=== PATIENT | male | born 1940 | race Caucasian/White ===

== ENCOUNTER 2020-11-16 12:59 | Outpatient (CLI) | payer MEDICARE, BC | END 2020-11-16 23:59 | disposition home or self-care (01) | LOC: RAD 12:59 | PROVIDERS: ATTEND Internal Medicine Cardiovascular Disease | DX: Z01.810 Encounter for preprocedural cardiovascular examination (principal); I35.0 Nonrheumatic aortic (valve) stenosis; I65.29 Occlusion and stenosis of unspecified carotid artery; N20.0 Calculus of kidney; N21.0 Calculus in bladder; N32.89 Other specified disorders of bladder; I25.10 Atherosclerotic heart disease of native coronary artery without angina pectoris; I77.810 Thoracic aortic ectasia | CPT/HCPCS: 71250; 74176 ==

== ENCOUNTER 2020-11-23 07:21 | Inpatient (IN) | payer MEDICARE, BC ==
[~2020-11-23] VITALS: Ht 182.9 cm; Wt 67.3 kg
[2020-11-23] MEDS ORDERED: TRAM50TA2 PO (07:59)
[2020-11-23] MEDS ORDERED: ROSU20TA2 PO (07:59)
[2020-11-23] MEDS ORDERED: ALBU90AE INH (07:59)
[2020-11-23] MEDS ORDERED: ASPI81TA45 PO (07:59)
[2020-11-23] MEDS ORDERED: FLUT9.9S INH (07:59)
[2020-11-23] MEDS ORDERED: LOSA25TA25 PO (07:59)
[2020-11-23] MEDS ORDERED: ACET-76 PO (07:59)
[2020-11-23] MEDS ORDERED: SODIUM CHLORIDE 0.9% 1,000 ML IV ONE (08:00)
[2020-11-23] MEDS ORDERED: ONDANSETRON 2MG/ML, 2ML IV PRN (08:00)
[2020-11-23 08:01] VITALS: BP 152/70
[2020-11-23 08:29] LABS: BASOPHILS % (AUTO) 1 % (0-1); EOSINOPHILS % (AUTO) 1 % (1-7); LYMPHOCYTES % (AUTO) 22 % (22-44); MEAN CORPUSCULAR HEMOGLOBIN 33.2 pg (27.5-34.5); MEAN CORPUSCULAR HGB CONC 34.1 g/dL (33.2-36.2); MEAN PLATELET VOLUME 7.5 fL (7.4-10.4); MONOCYTES % (AUTO) 10 % (2-9); NEUTROPHILS % (AUTO) 66 % (42-75); PLATELET COUNT 182 x10^3/uL (130-400); RED BLOOD COUNT 4.31 x10^6/uL (4.38-5.82); RED CELL DISTRIBUTION WIDTH 12.7 % (9.4-14.8)
[2020-11-23 08:37] LABS: ALANINE AMINOTRANSFERASE 46 U/L (12-78); ALBUMIN 3.8 g/dL (3.4-5.0); ANION GAP 7 mmol/L (5-15); CALCIUM 8.9 mg/dL (8.5-10.1); CHLORIDE 112 mmol/L (98-107); CREATININE 1.59 mg/dL (0.7-1.3); INTERNATIONAL NORMALIZED RATIO 0.93 (0.93-1.1)
[2020-11-23 08:39] LABS: ALKALINE PHOSPHATASE 67 U/L (45-117); BILIRUBIN,TOTAL 0.5 mg/dL (0.2-1.0); TOTAL PROTEIN 7.3 g/dL (6.4-8.2)
[2020-11-23] MEDS ORDERED: PROTAMINE SULFATE 10 MG/ML, 5ML ONE (08:41)
[2020-11-23] MEDS ORDERED: FENTANYL PF 250 MCG/5ML ONE (08:43)
[2020-11-23] MEDS ORDERED: DEXAMETHASONE 4 MG/ML, 1ML ONE ×2 (08:44)
[2020-11-23] MEDS ORDERED: PROPOFOL 10 MG/ML, 20ML ONE (08:44)
[2020-11-23] MEDS ORDERED: CEFAZOLIN 1,000 MG ONE ×2 (08:44)
[2020-11-23] MEDS ORDERED: ROCURONIUM 10MG/ML,5ML ONE (08:44)
[2020-11-23] MEDS ORDERED: HEPARIN 1,000 UNITS/ML, 10ML ONE ×3 (08:47→09:28)
[2020-11-23] MEDS ORDERED: PHENYLEPHRINE 10 MG/ML ONE (08:55)
[2020-11-23] MEDS ORDERED: ONDANSETRON 2MG/ML, 2ML ONE (08:55)
[2020-11-23] MEDS ORDERED: SUCCINYLCHOLINE 20 MG/ML, 10ML ONE (08:55)
[2020-11-23] MEDS ORDERED: LABETALOL 20 MG/4 ML IVPush PRN (10:00)
[2020-11-23] MEDS ORDERED: HYDROcodone/APAP 5/325 TABLET PO PRN (10:00)
[2020-11-23] MEDS: ASPIRIN 81 MG TABLET EC PO SCH (10:00)
[2020-11-23] MEDS ORDERED: hydrALAzine 20 MG/ML, 1ML IVPush PRN (10:00)
[2020-11-23 11:10] VITALS: BP 129/81
[2020-11-23] MEDS: ACETAMINOPHEN 325 MG TABLET PO PRN ×2 (11:52→22:42)
[2020-11-23 13:21] VITALS: BP 134/81
[2020-11-23 13:22] VITALS: BP 135/65
[2020-11-23] MEDS ORDERED: ALBUTEROL SULFATE 2.5 MG/3 ML NPPB PRN (13:30)
[2020-11-23 18:59] VITALS: BP 100/59
[2020-11-23] MEDS ORDERED: ATORVASTATIN 80 MG TABLET PO SCH (21:00)
[2020-11-23] MEDS: FLUTICASONE NASAL SPRAY 16GM NAS PRN (22:38)
[2020-11-24 01:34] VITALS: BP 110/63
[2020-11-24 06:00] LABS: BASOPHILS % (AUTO) 0 % (0-1); EOSINOPHILS % (AUTO) 0 % (1-7); LYMPHOCYTES % (AUTO) 16 % (22-44); MEAN CORPUSCULAR HEMOGLOBIN 33.2 pg (27.5-34.5); MEAN CORPUSCULAR HGB CONC 34.1 g/dL (33.2-36.2); MEAN PLATELET VOLUME 7.7 fL (7.4-10.4); MONOCYTES % (AUTO) 9 % (2-9); NEUTROPHILS % (AUTO) 74 % (42-75); PLATELET COUNT 138 x10^3/uL (130-400); RED BLOOD COUNT 3.94 x10^6/uL (4.38-5.82); RED CELL DISTRIBUTION WIDTH 12.6 % (9.4-14.8)
[2020-11-24 06:05] LABS: ANION GAP 5 mmol/L (5-15); CALCIUM 8.9 mg/dL (8.5-10.1); CHLORIDE 111 mmol/L (98-107)
[2020-11-24 06:07] LABS: CREATININE 1.51 mg/dL (0.7-1.3)
[2020-11-24 07:41] VITALS: BP 125/70
[2020-11-24] MEDS: ASPIRIN 81 MG TABLET EC PO SCH (07:54)
[2020-11-24] MEDS: FLUTICASONE NASAL SPRAY 16GM NAS PRN (07:54)
[2020-11-24] MEDS ORDERED: LOSARTAN 25MG TABLET PO SCH (09:00)
[2020-11-24] MEDS: PHENOL THROAT SPRAY BOTTLE MM PRN ×2 (10:26→14:13)
[2020-11-24 12:35] VITALS: BP 122/67
== END 2020-11-24 16:00 | disposition home or self-care (01) | DRG 266 ==
LOC: ORIP 07:21 → 5SO 11:03 → DCLOUNGE 11-24 15:42
PROVIDERS: ADMIT Internal Medicine Cardiovascular Disease; ATTEND Internal Medicine Cardiovascular Disease
PROC: B24BZZ4 Ultrasonography of Heart with Aorta, Transesophageal (ICD-10-PCS; 2020-11-23)
PROC: B3101ZZ Fluoroscopy of Thoracic Aorta using Low Osmolar Contrast (ICD-10-PCS; 2020-11-23)
PROC: 02RF38Z Replacement of Aortic Valve with Zooplastic Tissue, Percutaneous Approach (ICD-10-PCS; principal; 2020-11-23 09:00)
DX: I35.0 Nonrheumatic aortic (valve) stenosis (principal); Z00.6 Encounter for examination for normal comparison and control in clinical research program; I50.33 Acute on chronic diastolic (congestive) heart failure; I13.0 Hypertensive heart and chronic kidney disease with heart failure and stage 1 through stage 4 chronic kidney disease, or unspecified chronic kidney disease; Z20.822 Contact with and (suspected) exposure to COVID-19; E78.5 Hyperlipidemia, unspecified; I65.23 Occlusion and stenosis of bilateral carotid arteries; K59.00 Constipation, unspecified; N18.9 Chronic kidney disease, unspecified; Z82.49 Family history of ischemic heart disease and other diseases of the circulatory system; Z86.718 Personal history of other venous thrombosis and embolism; Z86.73 Personal history of transient ischemic attack (TIA), and cerebral infarction without residual deficits; Z87.891 Personal history of nicotine dependence; Z91.81 History of falling; Z98.1 Arthrodesis status
CPT/HCPCS: 33361; 36415; 76937; 80048; 80053; 85025; 85610; 86850; 86900; 86923; 87635; 93005; 93306; 93312; 93321; 93325; 93355; C1760; C1769; C1894; G0378; J0690; J1100; J1644; J2405; J2704; J2720; J3010; J0330; J2370; Q9967

== ENCOUNTER 2020-12-07 13:34 | Inpatient (IN) | payer MEDICARE, BC ==
[~2020-12-07] VITALS: Ht 172.7 cm; Wt 64.2 kg
[~2020-12-07 13:34] MED LIST: ACET-76 PO; ALBU90AE INH; ASPI81TA45 PO; FLUT9.9S INH; LOSA25TA25 PO; ROSU20TA2 PO; TRAM50TA2 PO
--- NOTE | 2020-12-07 13:41 | NUR ---
THIS IS 79/M BIB CARE FLIGHT FROM [facility] FOR CVA. PT WAS AT HOME THIS AM WHEN HE FELT LIGHTHEADED & DIZZY AND FELL TO THE GROUND, DENIES LOC. WHEN PT TRIED TO RISE, HE FELT WEAKNESS IN R-LEG. PT HAD A TAVR HERE, 2 WKS AGO. PT RECEIVED 1MG FROM [facility], AND LR, 81MG ASA, 300MG PLAVIX, 50MG COZAAR AT [facility]. NO DEFICITS NOTED ON ARRIVAL. PT DENIES SOB/CP. ERP AT BS FOR ED EVAL. PT CHANGED INTO GOWN, ALL MONITORS IN PLACE. CALL LIGHT WITHIN REACH
[2020-12-07] MEDS ORDERED: ONDANSETRON ODT 4 MG PO PRN (14:30)
[2020-12-07] MEDS ORDERED: ALBUTEROL SULFATE HOMEINH PRN (14:30)
[2020-12-07] MEDS ORDERED: ENALAPRILAT 1.25 MG/ML, 2ML IVPush PRN ×2 (14:30→20:30)
[2020-12-07] MEDS ORDERED: ACETAMINOPHEN 325 MG TABLET PO PRN (14:30)
[2020-12-07] MEDS ORDERED: ONDANSETRON 2MG/ML, 2ML IVPush PRN (14:30)
--- NOTE | 2020-12-07 14:42 | NUR ---
Pt to be admitted to [facility], room 482. Report called to [id number].
[2020-12-07] MEDS ORDERED: GADOTERATE 7.5 MMOL/15ML SYR ONE (15:30)
[2020-12-07] MEDS ORDERED: FLUTICASONE NASAL SPRAY 16GM NAS PRN (16:00)
[2020-12-07] MEDS: ENOXAPARIN 40 MG/0.4 ML SQ SCH (16:47)
[2020-12-07 16:49] VITALS: BP 117/80
[2020-12-07] MEDS: CLOPIDOGREL 75 MG TABLET PO SCH ×2 (17:00→17:30)
[2020-12-07] MEDS ORDERED: CLOPIDOGREL 75 MG TABLET ONE (17:21)
[2020-12-07 18:53] VITALS: BP 151/81
[2020-12-07] MEDS: ATORVASTATIN 80 MG TABLET PO SCH (20:14)
[2020-12-07] MEDS: MELATONIN 5 MG TABLET PO PRN (20:15)
[2020-12-08 01:01] VITALS: BP 121/73
[2020-12-08 04:55] LABS: BASOPHILS % (AUTO) 1 % (0-1); EOSINOPHILS % (AUTO) 2 % (1-7); LYMPHOCYTES % (AUTO) 32 % (22-44); MEAN CORPUSCULAR HEMOGLOBIN 32.8 pg (27.5-34.5); MEAN CORPUSCULAR HGB CONC 34.3 g/dL (33.2-36.2); MEAN PLATELET VOLUME 7.5 fL (7.4-10.4); MONOCYTES % (AUTO) 10 % (2-9); NEUTROPHILS % (AUTO) 55 % (42-75); PLATELET COUNT 200 x10^3/uL (130-400); RED CELL DISTRIBUTION WIDTH 12.6 % (9.4-14.8)
[2020-12-08 05:06] LABS: ANION GAP 7 mmol/L (5-15); CHLORIDE 112 mmol/L (98-107)
[2020-12-08 05:17] LABS: CHOLESTEROL, TOTAL 108 mg/dL (140-239); CREATININE 1.42 mg/dL (0.7-1.3); FREE T4 (FREE THYROXINE) 0.92 ng/dL (0.76-1.46); HDL CHOL % 51 % (26-37); HDL CHOLESTEROL (DIRECT) 55 mg/dL (40-60); LDL CHOLESTEROL,CALCULATED 35 mg/dL (54-169); LDL/HDL RATIO 0.6 (0.5-3.0); TRIGLYCERIDES 91 mg/dL (50-200); VLDL CHOLESTEROL 18 mg/dL (0-25)
[2020-12-08] MEDS ORDERED: ASPIRIN 325 MG TABLET PO SCH (06:00)
[2020-12-08 06:48] VITALS: BP 129/75
[2020-12-08] MEDS: CLOPIDOGREL 75 MG TABLET PO SCH (08:46)
[2020-12-08] MEDS ORDERED: LOSARTAN 25MG TABLET PO SCH (09:00)
[2020-12-08 14:02] VITALS: BP 98/62
[2020-12-08] MEDS: ENOXAPARIN 40 MG/0.4 ML SQ SCH (16:03)
[2020-12-08] MEDS: ATORVASTATIN 80 MG TABLET PO SCH (19:54)
[2020-12-08] MEDS: MELATONIN 5 MG TABLET PO PRN (19:54)
[2020-12-08 20:10] VITALS: BP 113/65
[2020-12-09 01:20] VITALS: BP 139/78
[2020-12-09 07:25] VITALS: BP 136/78
[2020-12-09] MEDS: CLOPIDOGREL 75 MG TABLET PO SCH (08:49)
[2020-12-09 12:19] VITALS: BP 120/72
[2020-12-09] MEDS ORDERED: CLOP75TA PO (15:21)
== END 2020-12-09 17:14 | disposition home or self-care (01) | DRG 69 ==
LOC: ED 13:50 → EDIP 13:54 → 4EST 15:42
PROVIDERS: ADMIT Hospitalist; ATTEND Hospitalist
DX: G45.9 Transient cerebral ischemic attack, unspecified (principal); N18.30 Chronic kidney disease, stage 3 unspecified; I12.9 Hypertensive chronic kidney disease with stage 1 through stage 4 chronic kidney disease, or unspecified chronic kidney disease; E78.5 Hyperlipidemia, unspecified; Z79.82 Long term (current) use of aspirin; Z86.718 Personal history of other venous thrombosis and embolism; Z86.73 Personal history of transient ischemic attack (TIA), and cerebral infarction without residual deficits; Z79.899 Other long term (current) drug therapy; Z88.2 Allergy status to sulfonamides; Z88.5 Allergy status to narcotic agent; Z88.8 Allergy status to other drugs, medicaments and biological substances; Z91.011 Allergy to milk products
CPT/HCPCS: 36415; 70544; 70553; 72141; 80048; 80061; 84439; 84443; 85025; G0378; J1650; A9575

== ENCOUNTER → 2021-01-04 | Outpatient (CLI) | payer MEDICARE, BC ==
[~2021-01-04] MED LIST changes: +CLOP75TA PO
== END | disposition home or self-care (01) ==
LOC: CFH 09:26
PROVIDERS: ATTEND Internal Medicine Cardiovascular Disease
DX: Z01.810 Encounter for preprocedural cardiovascular examination (principal); I65.29 Occlusion and stenosis of unspecified carotid artery; I34.0 Nonrheumatic mitral (valve) insufficiency; E78.5 Hyperlipidemia, unspecified; I11.9 Hypertensive heart disease without heart failure; Z95.2 Presence of prosthetic heart valve
CPT/HCPCS: 93306